=== PATIENT | male | born 1970 | race American Indian/Alaskan Native ===

== ENCOUNTER 2018-09-27 15:19 | Observation (INO) | payer OTHER ==
[2018-09-27] MEDS ORDERED: MORPHINE 4 MG/ML SYR ONE (16:07)
[2018-09-27] MEDS ORDERED: FAMOTIDINE 20 MG/2 ML VIAL IV ONE (16:07)
[2018-09-27] MEDS ORDERED: ONDANSETRON 4 MG/2 ML VIAL ONE (16:07)
[2018-09-27 16:12] LABS: Basophils % 0.2 % (0-1.3); Hematocrit 44.8 % (39.6-49.0); Lymphocytes % 13.1 % (15.3-44.8); MPV 10.7 fL (7.6-11.3); RBC Red Blood Cell Count 4.89 M/uL (4.33-5.43)
[2018-09-27] MEDS ORDERED: NA CHLORIDE 0.9% 1,000 ML ONE ×2 (16:27→19:49)
[2018-09-27 16:30] LABS: ALT/SGPT 27 U/L (12-78); AST/SGOT 11 U/L (15-37); Alkaline Phosphatase 68 U/L (45-117); BUN Blood Urea Nitrogen 10 mg/dL (7-18); Bicarbonate 27 mmol/L (21-32); Bilirubin Direct < 0.1 mg/dL (0-0.2); Bilirubin Total 0.4 mg/dL (0.2-1.0); Glucose Level 89 mg/dL (74-106); Lipase 161 U/L (73-393); Potassium 3.7 mmol/L (3.5-5.1); Sodium Level 142 mmol/L (136-145)
[2018-09-27 16:59] LABS: Urine Blood NEGATIVE (NEG); Urine Glucose NEGATIVE (NEG); Urine Protein NEGATIVE (NEG); Urine Specific Gravity 1.015 (1.005-1.030); Urine pH 7.5 (5.0-7.0)
[2018-09-27 17:14] LABS: Urine Amorphous Sediment 2+ /HPF (NONE SEEN); Urine Bacteria <20 /HPF (NONE SEEN); Urine Culture Reflex Order NOT NEEDED; Urine RBC <5 /HPF (NONE SEEN)
--- NOTE | 2018-09-27 18:58 | RAD REPORT ---
EXAM DESCRIPTION: CT - Abdomen Pelvis W Contrast - 09/27/2018 6:33 pm CLINICAL HISTORY: Abdominal pain, possible appendicitis COMPARISON: September, January 2015 TECHNIQUE: Biphasic, helical CT imaging of the abdomen and pelvis was performed following 100 ml non -ionic IV contrast. Oral contrast was given. All CT scans are performed using dose optimization technique as appropriate and may include automated exposure control or mA/KV adjustment according to patient size. FINDINGS: No suspicious findings in the lung bases. The liver, spleen, and pancreas show no suspicious findings. Gallbladder and biliary tree are also wi thout suspicious finding. Symmetric renal function is seen with no hydronephrosis or suspicious renal mass. No pyelonephritis o r acute parenchymal process. Urinary bladder is contracted. No gross abnormality suspected. Prostate gland and seminal vesicles are normal range. No adrenal abnormalities. No gastric dilatation or gastric wall thickening. No dilation of the large or small bowel. Terminal i leum is normal in appearance. There is a moderately large stool volume in the cecum. Oral contrast morris s reached the mid transverse colon level. Review oval prior 3 CT study shows the patient to have a baseline short length appendix with a relati vely prominent baseline diameter up to 8-9 mm. On the current examination. The tip of the cecum is th ickened. The short length appendix is 14 mm in diameter. There is no contrast or air within the lumen . No appendicolith. No measurable periappendiceal stranding or abnormal lymphadenopathy. No free air or free fluid. No pneumatosis or additional areas of inflammatory stranding. No mass o r bulky lymphadenopathy. Patient has bilateral fat filled inguinal hernias. No suspicious bony findings. IMPRESSION: Suspected early acute appendicitis. The patient's appendix is as a baseline short in length and prominent in diameter. On the current exa mination the appendix is even greater in diameter up to 14 mm with no air in the lumen. Tip of the ce cum is thickened. No other GI abnormality seen. Additional nonacute findings are detailed in the body of the report.
--- NOTE | 2018-09-27 19:23 | ER ---
Nurse's Notes [facility] Name: Suhas Christie Age: 48 yrs Sex: Male : 1970 Arrival Date: 09/27/2018 Time: 15:21 Bed 23 [facility] MD: Diagnosis: Acute appendicitis Presentation: 09/27 15:36 Presenting complaint: Patient states: General abdominal pain with one episode of aj vomiting and diarrhea. Patient took Imodium and Pepto today with no relief. Transition of care: patient was not received from another setting of care. Onset of symptoms was September 27, 2018. Risk Assessment: Do you want to hurt yourself or someone else? Patient reports no desire to harm self or others. Initial Sepsis Screen: Does the patient meet any 2 criteria? No. Patient's initial sepsis screen is negative. Does the patient have a suspected source of infection? No. Patient's initial sepsis screen is negative. Care prior to arrival: None. 15:36 Method Of Arrival: Ambulatory aj 15:36 Acuity: CHARLES 3 aj Triage Assessment: 15:37 General: Appears in no apparent distress. comfortable, Behavior is calm, cooperative, aj appropriate for age. Pain: Complains of pain in abdomen. Neuro: Level of Consciousness is awake, alert, obeys commands, Oriented to person, place, time, situation, Appropriate for age. Respiratory: Airway is patent Respiratory effort is even, unlabored, Respiratory pattern is regular, symmetrical. GI: Reports lower abdominal pain, upper abdominal pain, diarrhea, nausea, vomiting. Derm: Skin is intact, is healthy with good turgor, Skin is pink, warm \T\ dry. normal. Historical: - Allergies: 15:37 No Known Allergies; aj - Home Meds: 15:37 None [Active]; aj - PMHx: 15:37 Prostate Infection; aj - PSHx: 15:37 back; aj - Immunization history:: Adult Immunizations up to date. - Social history:: Smoking status: Patient/guardian denies using tobacco. - Ebola Screening: : Patient negative for fever greater than or equal to 101.5 degrees Fahrenheit, and additional compatible Ebola Virus Disease symptoms Patient denies exposure to infectious person Patient denies travel to an Ebola-affected area in the 21 days before illness onset No symptoms or risks identified at this time. Screenin:45 Abuse screen: Denies threats or abuse. Denies injuries from another. Nutritional rv screening: No deficits noted. Tuberculosis screening: No symptoms or risk factors identified. Fall Risk None identified. Assessment: 15:43 General: Appears in no apparent distress. uncomfortable, Behavior is calm, cooperative. rv Pain: Complains of pain in umbilical area Pain radiates to right upper quadrant, left upper quadrant, right lower quadrant and left lower quadrant Pain currently is 8 out of 10 on a pain scale. Quality of pain is described as sharp, Pain began gradually, Is continuous. Neuro: Level of Consciousness is awake, alert, obeys commands, Oriented to person, place, time, situation. Cardiovascular: Patient's skin is warm and dry. Respiratory: Airway is patent. GI: Abdomen is flat, non-distended, Bowel sounds present X 4 quads. Abd is soft and non tender X 4 quads. : No signs and/or symptoms were reported regarding the genitourinary system. EENT: No signs and/or symptoms were reported regarding the EENT system. Derm: Skin is intact. Musculoskeletal: No signs and/or symptoms reported regarding the musculoskeletal system. 16:15 Reassessment: Patient appears in no apparent distress at this time. Patient and/or rv family updated on plan of care and expected duration. Pain level reassessed. Patient is alert, oriented x 3, equal unlabored respirations, skin warm/dry/pink. patient already feeling well. informed CT scan oral contrast done at about 1605. patient updated of 2 hour wait for the CT scan to be done. Patient states feeling better. Patient states symptoms have improved. 18:51 Reassessment: Patient appears in no apparent distress at this time. Patient and/or rv family updated on plan of care and expected duration. Pain level reassessed. Patient is alert, oriented x 3, equal unlabored respirations, skin warm/dry/pink. patient came back from CT scan. expressed relief after the Morphine dose. explained of status and lab results, and the plan of care. awaiting CT scan result. Patient states feeling better. Vital Signs: 15:37 BP 140 / 87; Pulse 74; Resp 18; Temp 98.1; Pulse Ox 98% on R/A; Weight 68.04 kg; Height aj 5 ft. 7 in. (170.18 cm); 16:00 BP 132 / 94; Pulse 64; Resp 16; Pulse Ox 98% on R/A; rv 18:30 BP 109 / 79; Pulse 57; Resp 15; Pulse Ox 98% ; Pain 5/10; rv 20:07 BP 97 / 58; Pulse 61; Resp 16; Temp 98; Pulse Ox 99% on R/A; rv 15:37 Body Mass Index 23.49 (68.04 kg, 170.18 cm) aj ED Course: 15:21 Patient arrived in ED. as 15:32 Aleksandr Melgar PA is PHCP. cp 15:32 Aleksandr Durbin MD is Attending Physician. cp 15:34 David Duggan, KIANA is Primary Nurse. rv 15:36 Triage completed. aj 15:37 Arm band placed on left wrist. Patient placed in an exam room, on a stretcher, on pulse aj oximetry. 15:45 Patient has correct armband on for positive identification. Placed in gown. Bed in low rv position. Call light in reach. Side rails up X 1. Pulse ox on. NIBP on. 15:59 Missed attempt(s): 20 gauge in right forearm. lt1 15:59 Initial lab(s) drawn, by wy, sent to lab. Inserted saline lock: 20 gauge in right lt1 antecubital area, using aseptic technique. 18:35 CT Abd/Pelvis - PO and IV Contrast In Process Unspecified. EDMS 19:23 Judd Marie MD is Hospitalizing Provider. cp 19:53 XRAY Chest (1 view) In Process Unspecified. EDMS 20:08 No provider procedures requiring assistance completed. Patient transferred, IV remains rv in place. Administered Medications: 16:03 Drug: morphine 4 mg Route: IVP; Site: right antecubital; rv 16:03 Drug: Zofran 4 mg Route: IVP; Site: right antecubital; rv 16:03 Drug: Pepcid 20 mg Route: IVP; Site: right antecubital; rv 16:13 Drug: NS 0.9% 1000 ml Route: IV; Rate: 1 bolus; Site: right antecubital; rv 19:28 Follow up: IV Status: Completed infusion rv 19:40 Drug: Zosyn 3.375 grams Route: IVPB; Infused Over: 60 mins; Site: right antecubital; rv 20:07 Follow up: IV Status: Infusion continued upon transfer rv Outcome: 19:23 Decision to Hospitalize by Provider. cp 20:08 Admitted to OR accompanied by nurse, via stretcher, room OR, Report called to SANTOS BRUNO rv 20:08 Condition: stable 20:08 Instructed on the need for admit. 20:32 Patient left the ED. rv Signatures: Dispatcher [employer] Toyin Bhakta RN RN aj Martinez, Amelia as Page, Corey, PA PA David Gerardo RN RN rv Gisselle Escalona 1 Corrections: (The following items were deleted from the chart) 20:32 20:08 Admitted to OR accompanied by nurse, via stretcher, room OR, rv rv
--- NOTE | 2018-09-27 19:24 | EDPHYS ---
Physician Documentation [facility] Name: Suhas Christie Age: 48 yrs Sex: Male : 1970 Arrival Date: 09/27/2018 Time: 15:21 Bed 23 Private MD: ED Physician Aleksandr Durbin HPI: 09/27 15:48 This 48 yrs old Other Male presents to ER via Ambulatory with complaints of Abdominal cp Pain, Back Pain, Dizziness. 15:48 The patient presents with abdominal pain mid abdomen. Onset: The symptoms/episode cp began/occurred yesterday. Associated signs and symptoms: Pertinent negatives: blood in stools, chest pain, constipation, diarrhea, testicular pain, vomiting. The symptoms are described as sharp. Severity of pain: in the emergency department the pain is actually worse moderately. Historical: - Allergies: 15:37 No Known Allergies; aj - Home Meds: 15:37 None [Active]; aj - PMHx: 15:37 Prostate Infection; aj - PSHx: 15:37 back; aj - Immunization history:: Adult Immunizations up to date. - Social history:: Smoking status: Patient/guardian denies using tobacco. - Ebola Screening: : Patient negative for fever greater than or equal to 101.5 degrees Fahrenheit, and additional compatible Ebola Virus Disease symptoms Patient denies exposure to infectious person Patient denies travel to an Ebola-affected area in the 21 days before illness onset No symptoms or risks identified at this time. ROS: 15:55 Constitutional: Negative for body aches, chills, fever, poor PO intake. cp 15:55 Eyes: Negative for injury, pain, redness, and discharge. cp 15:55 ENT: Negative for drainage from ear(s), ear pain, sore throat, difficulty swallowing, difficulty handling secretions. 15:55 Cardiovascular: Negative for chest pain, palpitations. 15:55 Respiratory: Negative for cough, shortness of breath, wheezing. 15:55 Abdomen/GI: Positive for abdominal pain, nausea, diarrhea, Negative for constipation, black/tarry stool, rectal bleeding, active vomiting. 15:55 : Negative for urinary symptoms, flank pain, testicular pain 15:55 All other systems are negative. Exam: 15:59 Head/Face: Normocephalic, atraumatic. cp 15:59 Constitutional: The patient appears in no acute distress, alert, awake, non-toxic, well developed, well nourished, uncomfortable. 15:59 Eyes: Periorbital structures: appear normal, Conjunctiva: normal, no exudate, no injection, Sclera: no appreciated abnormality, Lids and lashes: appear normal, bilaterally. 15:59 ENT: External ear(s): are unremarkable, Nose: is normal, Mouth: Lips: dry, Oral mucosa: moist, Posterior pharynx: is normal, airway is patent, no erythema, no exudate. 15:59 Chest/axilla: Inspection: normal, Palpation: is normal, no crepitus, no tenderness. 15:59 Cardiovascular: Rate: normal, Rhythm: regular, Edema: is not appreciated, JVD: is not appreciated. 15:59 Respiratory: the patient does not display signs of respiratory distress, Respirations: normal, no use of accessory muscles, no retractions, no splinting, no tachypnea, labored breathing, is not present, Breath sounds: are clear throughout, no decreased breath sounds, no stridor, no wheezing. 15:59 Abdomen/GI: Inspection: abdomen appears normal, Bowel sounds: active, all quadrants, Palpation: soft, in all quadrants, moderate abdominal tenderness, in the umbilical area and right lower quadrant, rebound tenderness, is not appreciated, voluntary guarding, is elicited in the umbilical area and right lower quadrant, involuntary guarding, is not appreciated. 15:59 Back: pain, is absent, ROM is normal. 15:59 Skin: no rash present. 20:15 ECG was reviewed by the Attending Physician. cp Vital Signs: 15:37 BP 140 / 87; Pulse 74; Resp 18; Temp 98.1; Pulse Ox 98% on R/A; Weight 68.04 kg; Height aj 5 ft. 7 in. (170.18 cm); 16:00 BP 132 / 94; Pulse 64; Resp 16; Pulse Ox 98% on R/A; rv 18:30 BP 109 / 79; Pulse 57; Resp 15; Pulse Ox 98% ; Pain 5/10; rv 20:07 BP 97 / 58; Pulse 61; Resp 16; Temp 98; Pulse Ox 99% on R/A; rv 15:37 Body Mass Index 23.49 (68.04 kg, 170.18 cm) aj MDM: 15:33 Patient medically screened. [facility] 19:20 Data reviewed: vital signs, nurses notes, lab test result(s), radiologic studies, CT cp scan. 19:20 Physician consultation: Judd Marie MD was called at 19:20, was contacted at 19:20, regarding admission, to the medical/surgical unit. patient's condition. 09/27 15:44 Order name: Basic Metabolic Panel; Complete Time: 19:18 cp 09/27 15:44 Order name: CBC with Diff; Complete Time: 16:26 cp 09/27 16:26 Interpretation: Normal except: NOHEMI% 77.8; LYM% 13.1. cp 09/27 15:44 Order name: Creatinine for Radiology; Complete Time: 19:18 cp 09/27 15:44 Order name: Hepatic Function; Complete Time: 19:18 cp 09/27 15:44 Order name: Lipase; Complete Time: 19:18 cp 09/27 15:44 Order name: Urine Microscopic Only; Complete Time: 19:18 cp 09/27 16:08 Order name: Urine Dipstick--Ancillary (enter results); Complete Time: 19:18 09/27 19:21 Order name: PT-INR 09/27 19:21 Order name: Ptt, Activated 09/27 20:09 Order name: Basic Metabolic Panel EDTN 09/27 20:09 Order name: Basic Metabolic Panel EDTN 09/27 20:09 Order name: CBC with Automated Diff EDTN 09/27 20:09 Order name: CBC with Automated Diff [facility] 09/27 20:09 Order name: Lipase EDTN 09/27 15:44 Order name: IV Saline Lock; Complete Time: 16:00 09/27 15:44 Order name: Labs collected and sent; Complete Time: 16:00 09/27 15:44 Order name: Urine Dipstick-Ancillary (obtain specimen); Complete Time: 16:02 cp 09/27 15:44 Order name: CT Abd/Pelvis - PO and IV Contrast; Complete Time: 19:18 cp 09/27 19:19 Interpretation: Report reviewed. 09/27 19:21 Order name: NPO; Complete Time: 19:27 cp 09/27 19:21 Order name: EKG; Complete Time: 19:23 cp 09/27 19:21 Order name: XRAY Chest (1 view) 09/27 20:09 Order name: NPO EDTN 09/27 20:09 Order name: Lipase EDTN 09/27 20:09 Order name: Liver (Hepatic) Function EDTN 09/27 20:09 Order name: Liver (Hepatic) Function EDTN 09/27 19:21 Order name: EKG - Nurse/Tech; Complete Time: 20:07 cp EC:15 Rate is 58 beats/min. Rhythm is regular. OH interval is normal. QRS interval is normal. cp QT interval is normal. Interpreted by me. Reviewed by me. Administered Medications: 16:03 Drug: morphine 4 mg Route: IVP; Site: right antecubital; rv 16:03 Drug: Zofran 4 mg Route: IVP; Site: right antecubital; rv 16:03 Drug: Pepcid 20 mg Route: IVP; Site: right antecubital; rv 16:13 Drug: NS 0.9% 1000 ml Route: IV; Rate: 1 bolus; Site: right antecubital; rv 19:28 Follow up: IV Status: Completed infusion rv 19:40 Drug: Zosyn 3.375 grams Route: IVPB; Infused Over: 60 mins; Site: right antecubital; rv 20:07 Follow up: IV Status: Infusion continued upon transfer rv Disposition: 09/28 06:21 Co-signature as Attending Physician, Aleksandr Durbin MD I agree with the assessment and [facility] plan of care. Disposition: 09/27/18 19:23 Hospitalization ordered by Judd Marie for Observation. Preliminary diagnosis is Acute appendicitis. - Bed requested for Telemetry/MedSurg (observation). - Status is Observation. rv - Condition is Stable. - Problem is new. - Symptoms have improved. UTI on Admission? No Signatures: Dispatcher [employer] [facility] Ani Mccurdy RN RN mw Myers, Amanda, RN RN aj Anderson, Corey, MD MD cha Page, Corey, PA PA cp Vicente, Ronaldo, RN RN rv Corrections: (The following items were deleted from the chart) 09/27 19:42 19:23 Hospitalization Ordered by Judd Marie MD for Observation. Preliminary mw diagnosis is Acute appendicitis. Bed requested for Operating Room. Status is Observation. Condition is Stable. Problem is new. Symptoms have improved. UTI on Admission? No. cp 20:32 19:42 09/27/2018 19:23 Hospitalization Ordered by Judd Marie MD for Observation. rv Preliminary diagnosis is Acute appendicitis. Bed requested for Telemetry/MedSurg (observation). Status is Observation. Condition is Stable. Problem is new. Symptoms have improved. UTI on Admission? No. mw
[2018-09-27] MEDS ORDERED: PIPER/TAZO/NS 3.375gm 3.375 GM/100 ML BAG ONE (19:49)
[2018-09-27 20:02] LABS: Protime INR 1.07
[2018-09-27] MEDS ORDERED: ACETAMINOPHEN 500 MG TAB PO PRN (20:02)
[2018-09-27] MEDS ORDERED: ONDANSETRON 4 MG/2 ML VIAL IV PRN (20:02)
[2018-09-27] MEDS ORDERED: MORPHINE 4 MG/ML SYR IV PRN (20:02)
[2018-09-27] MEDS ORDERED: FENTANYL CITR 100 MCG/2 ML ONE (20:37)
[2018-09-27] MEDS ORDERED: GLYCOPYRROLATE 0.2 MG/ML SYR ONE (20:37)
[2018-09-27] MEDS ORDERED: PROPOFOL 200 MG/20 ML VIAL IV ONE (20:37)
[2018-09-27] MEDS ORDERED: MIDAZOLAM HCL 2 MG/2 ML INJ ONE (20:37)
[2018-09-27] MEDS ORDERED: NEOSTIGMINE 1 MG/ML -10 ML VIAL ONE (20:38)
[2018-09-27] MEDS ORDERED: KETOROLAC 30 MG/ML INJ ONE (20:39)
[2018-09-27] MEDS ORDERED: MORPHINE 10 MG/ML VIAL ONE (20:39)
[2018-09-27] MEDS ORDERED: LIDOCAINE 1% MPF 5 ML VIAL ONE (20:39)
[2018-09-27] MEDS ORDERED: ROCURONIUM 50 MG/5 ML VIAL IV ONE (20:39)
--- NOTE | 2018-09-27 20:46 | RAD REPORT ---
EXAM DESCRIPTION: RAD - Chest Single View - 09/27/2018 7:52 pm CLINICAL HISTORY: Abdominal pain COMPARISON: January 2015 TECHNIQUE: AP portable chest image was obtained 1950 hours . FINDINGS: Lungs are clear. Heart and vasculature are normal. No measurable pleural effusion and no p neumothorax. No acute bony abnormality seen. No acute aortic findings suspected. IMPRESSION: No acute cardiopulmonary process. No significant interval change.
--- NOTE | 2018-09-27 22:07 | P.BOP ---
Preoperative diagnosis: Acute appendicitis Postoperative diagnosis: same Primary procedure: Laparoscopic appendectomy Estimated blood loss: <10cc Specimen: omar Findings: as above Anesthesia: General Complications: None Transferred to: Recovery Room Condition: Good
[2018-09-27] MEDS: HYDROMORPHONE HCL 1 MG/ML INJ ONE ×2 (22:09→22:16)
[2018-09-27] MEDS: HYDROCODONE/APAP 5/325 MG TAB PO PRN (23:01)
[2018-09-27 23:09] VITALS: BMI 23.5
[2018-09-27] MEDS: PIPER/TAZO/NS 3.375gm 3.375 GM/100 ML BAG IVPB SCH (23:48)
[2018-09-27] MEDS ORDERED: PIPER/TAZO/NS 3.375gm 6.750 GM/200 ML BAG ONE (23:48)
--- NOTE | 2018-09-27 23:48 | OP ---
Date of Procedure: 09/27/2018 Surgeon: Judd Mraie MD Preoperative Diagnosis: Acute appendicitis. Postoperative Diagnosis: Acute appendicitis. Procedure: Laparoscopic appendectomy. Anesthesia: General plus local. Indications: This is a case of a 48-year-old patient who comes to us with acute appendicitis. The b enefits, alternatives, and risks of laparoscopic, possible open appendectomy were fully explained to the patient, which included but are not limited to infection, bleeding, damage to adjacent structures , anesthesia complication, MS, even . He also understands this may not relieve the symptoms; he might need more than one surgical intervention. He understood, signed the consent. Description Of Procedure: The patient was brought to the operating room, placed in supine position. Anesthesia was done without complication. Abdominal area was prepped and draped in a sterile fashio n. A time-out was called. A midline incision was made in the infraumbilical region. Incision was c arried down to fascia, which was opened under direct vision. Peritoneum was encountered, opened unde r direct vision. Vicryl #1 was placed inside the fascia. Denisa trocar was carefully introduced. N o bleeding was obtained. I placed 2 more trocars, 5 mm each one of them, one in the suprapubic area, another one in the left lower quadrant using same technique, which was consisted of local anesthetic , sharp incision of the skin, and introduction of the trocars under direct vision. This allowed me t o visualize the area of the appendix with an inflamed appendix seen. So we created a window in the b ase of the appendix that seems to be spared from the inflammation. Transected that with an Endo HUY 45 mm 3.5, and the mesoappendix with an Endo HUY 45 mm 2.5. Further hemostasis was obtained with the help of hemoclips. Appendix was removed from abdominal cavity using an EndoCatch through the umbili panda incision. The area was inspected once again after irrigation and suction; we did not see any deborah e leak, no bleeding. At that moment, I proceeded to remove the trocars under direct vision. Deflate d pneumoperitoneum. Closed the fascia with #1 Vicryl. Irrigated subcutaneous tissue, closed that wi th 3-0 chromic and the skin with lucy. Sponge count and instrument counts were correct. The jose alfredo ent tolerated the procedure well. The patient was sent to Recovery in stable condition. /JUAN Voice ID: [id number] Report ID: [id number]
[2018-09-28] MEDS: NA CHLORIDE 0.9% 1,000 ML IV SCH ×2 (00:01→11:13)
--- NOTE | 2018-09-28 00:04 | HP ---
Date of Admission: 09/27/2018 Diagnosis: Acute appendicitis and peritonitis. History Of Present Illness: This is the case of a 48-year-old patient, who comes with abdominal pain , onset this morning, associated with nausea and vomiting. The only thing patient remembers is eatin g just a regular food with some spicy food, on it. The patient stated the pain was getting worse to the point that he has to come to the ER. In ER, the pain got worse, also started in the periumbilica l region, moved to the right lower quadrant. He denies any dysuria, hematuria, hematochezia, or orin na. He denies any recent traveling out of the country. Denies any family member sick at home. Allergies: NONE. Medical Problems: None other than some area of prostatitis. Past Surgical History: Back surgery. Social History: He does not smoke. He does not drink alcohol. Review of Systems: Ten points otherwise unremarkable. Physical Examination: General: Patient is awake and alert. HEENT: Pupils are equal and reactive, anicteric. Neck: Supple. Chest: Clear. Heart: S1, S2. Abdomen: Soft and depressible. There is right lower quadrant tenderness with guarding and rebound. Rovsing sign positive. Psoas sign positive. Extremities: Good capillary refill. Rectal: Deferred. Neurologic: Cranial nerves 2 through 12 grossly within normal limits. Laboratory Data: WBC count is 7.4, hemoglobin of 14.9 with an INR 1.07. Chloride is 108. AST 11. Imaging Studies: CAT scan of the abdomen and pelvis interpreted by as early acute omar endicitis. Patient also informed of the bilateral fat inguinal hernias. Assessment: This is a 48-year-old patient with acute appendicitis. No previous colonoscopies. The patient was explained emergent laparoscopic, possible open appendectomy with benefits, alternativ es, and risks including, but not limited to infection, bleeding, damage to adjacent structures, anest hesia complication, negative appendix, negative exploration, WA, and even . He also understands this may not relieve any symptoms, he might need more than one surgical intervention. He understand s to follow in my office since we have to make sure we have a followup on the pathology of that, and also discuss with his primary doctor the chance of colonoscopy in the near future. They understood a nd signed a consent and the OR was emergently called. YUE/JUAN Voice ID: [id number]
[2018-09-28] MEDS: HYDROCODONE/APAP 5/325 MG TAB PO PRN ×2 (03:51→11:15)
[2018-09-28] MEDS: PIPER/TAZO/NS 3.375gm 3.375 GM/100 ML BAG IVPB SCH (05:26)
[2018-09-28 07:09] LABS: Absolute Lymphocytes (CBC) 0.7 K/uL (0.7-4.9); Basophils % 0.2 % (0-1.3); Hematocrit 36.4 % (39.6-49.0); Lymphocytes % 9.5 % (15.3-44.8); MPV 10.4 fL (7.6-11.3); RBC Red Blood Cell Count 3.97 M/uL (4.33-5.43)
[2018-09-28 07:19] LABS: Albumin 3.1 g/dL (3.4-5.0); Bilirubin Direct 0.2 mg/dL (0-0.2); Bilirubin Total 0.7 mg/dL (0.2-1.0); Potassium 3.7 mmol/L (3.5-5.1); Protein, Total 6.2 g/dL (6.4-8.2)
--- NOTE | 2018-09-28 10:36 | EKG ---
Test Date: 2018-09-27 Test Time: 20:06:46 Structural Technician: MEASUREMENT RESULTS: Intervals: Rate: 58 FL: 136 QRSD: 72 QT: 418 QTc: 410 Alviso: P: 41 FL: 136 QRS: 55 T: 51 INTERPRETIVE STATEMENTS: Sinus bradycardia Otherwise normal ECG Compared to ECG 01/10/2015 14:00:15 Sinus rhythm no longer present Electronically Signed On 09-28-18 10:35:07 CDT by Bradley Jeffery
[2018-09-28 12:04] VITALS: O2SAT 96
[2018-09-28 12:56] VITALS: BP 106/63; TEMP 97.3
[2018-09-28] MEDS ORDERED: PIPER/TAZO/NS 3.375gm 3.375 GM/100 ML BAG IVPB SCH (17:00)
== END 2018-09-28 14:49 | disposition home or self-care (01) ==
LOC: ER 15:19 → ERHOLD 20:18 → 2ND 22:17
PROVIDERS: ADMIT Surgery; ATTEND Surgery
PROC: 0DTJ4ZZ Resection of Appendix, Percutaneous Endoscopic Approach (ICD-10-PCS; principal; 2018-09-27 20:00)
DX: K35.80 Unspecified acute appendicitis (principal); R00.1 Bradycardia, unspecified
CPT/HCPCS: 36415; 71045; 74177; 80048; 80076; 81003; 81015; 83690; 85025; 85610; 85730; 88304; 93005; 96361; 96365; 96375; 99285; G0378; J1170; J2250; J2405; J2543; J2704; J2710; J3010; J7030; Q9967

== ENCOUNTER 2019-01-04 09:44 | Day surgery (SDC) | payer OTHER ==
[2019-01-03 15:54] LABS: Absolute Lymphocytes (CBC) 0.9 K/uL (0.7-4.9); Basophils % 0.5 % (0-1.3); Hematocrit 43.2 % (39.6-49.0); Lymphocytes % 18.3 % (15.3-44.8); MPV 10.3 fL (7.6-11.3); RBC Red Blood Cell Count 4.75 M/uL (4.33-5.43)
[2019-01-03 16:08] LABS: BUN Blood Urea Nitrogen 13 mg/dL (7-18); Bicarbonate 32 mmol/L (21-32); Glucose Level 89 mg/dL (74-106); Potassium 4.1 mmol/L (3.5-5.1); Sodium Level 140 mmol/L (136-145)
[~2019-01-04 09:44] MED LIST: FENTANYL CITR 250 MCG/5 ML ONE; GLYCOPYRROLATE 0.2 MG/ML SYR ONE; LIDOCAINE 2% MPF 5 ML VIAL ONE; MIDAZOLAM HCL 2 MG/2 ML INJ ONE; PROPOFOL 200 MG/20 ML VIAL IV ONE; ROCURONIUM 50 MG/5 ML VIAL IV ONE; dexAMETHasone 10 MG/ML VIAL ONE
[2019-01-04] MEDS: Ringers Lactate 1,000 ML IV ONE (10:06)
[2019-01-04] MEDS ORDERED: CEFAZOLIN/SWI 1gm 1 GM/10 ML SYR ONE (10:31)
[2019-01-04] MEDS ORDERED: KETOROLAC 30 MG/ML INJ ONE (11:26)
[2019-01-04] MEDS ORDERED: GLYCOPYRROLATE 0.2 MG/ML SYR ONE ×2 (11:29→11:30)
[2019-01-04] MEDS ORDERED: NEOSTIGMINE 1 MG/ML -10 ML VIAL ONE (11:30)
--- NOTE | 2019-01-04 11:30 | P.BOP ---
Preoperative diagnosis: bilateral inguinal hernias Postoperative diagnosis: same Primary procedure: 1. Laparoscopic repair of right inguinal hernia with mesh Secondary procedure: 2. Laparoscopic repair of left inguinal hernia with mesh Beamer Helper: Aster Quintanilla) Estimated blood loss: <10cc Specimen: none Findings: as above Anesthesia: General Complications: None Transferred to: Recovery Room Condition: Good
[2019-01-04] MEDS: HYDROMORPHONE HCL 1 MG/ML INJ ONE ×4 (12:07→12:25)
[2019-01-04] MEDS ORDERED: ONDANSETRON 4 MG/2 ML VIAL ONE (12:12)
[2019-01-04] MEDS ORDERED: Ringers Lactate 1,000 ML IV ONE (12:30)
[2019-01-04] MEDS ORDERED: CODEINE 30MG/APAP 300MG TAB ONE (13:35)
[2019-01-04] MEDS ORDERED: CODEINE 30MG/APAP 300MG TAB PO ONE (13:45)
[2019-01-04 14:26] VITALS: TEMP 98; O2SAT 96
[2019-01-04 15:00] VITALS: BP 108/70
--- NOTE | 2019-01-05 00:25 | OP ---
Date of Procedure: 01/04/2019 Surgeon: Judd Marie MD Art Gallery Director: NIKOLAY Heath. Postoperative Diagnosis: Bilateral inguinal hernias. Postoperative Diagnosis: Bilateral inguinal hernias. Procedure Performed: 1.Laparoscopic repair of right inguinal hernia with mesh. 2.Laparoscopic repair of left inguinal hernia with mesh. Estimated Blood Loss: Less than 10 mL. Anesthesia: General plus local. Indications: This is the case of a 48-year-old patient, comes to us with a bilateral inguinal hernia s with tenderness. Benefits, alternatives, and risks of repair were fully explained, which include, but are not limited to infection, bleeding, damage to adjacent structures, anesthesia complications, recurrence, chronic pain, chronic numbness, MA, even . He also understands this may not relieve any symptoms. He might need more than one surgical intervention. He also understands the use of me sh in that region. Pros and cons of mesh used was discussed with the patient. He did allow me to us e mesh. Description Of Procedure: The patient was brought to the operating room, placed in supine position. Anesthesia was done without complication. Abdominal area was prepped and draped in a sterile fashio n. Marcaine 0.5% was injected for local anesthetic, followed by sharp incision of the skin in the in fraumbilical region. Incision was carried down to fascia, which was opened under direct vision. The anterior rectus sheath was opened, the posterior rectus sheath was encountered after the muscle was retracted laterally. The patient was placed in Trendelenburg position. The extrapleural space was d eveloped with the use of blunt dissection and also balloon tipped pacemaker trocar placed in the area toward the symphysis pubis and insufflated with angled laparoscope visualization. This help us to c reate the extraperitoneal space. The balloon was removed. The area was insufflated and a 5 mm troca r was placed in the area of the distal pubis symphysis and another one shelter between the first and the second one. The preperitoneal space was further developed by exposing the inferior epigastric ve ssels and keeping them anterior. Mitesh ligament was dissected laterally to the junction with the il iac veins. The dissection was continued inferiorly to the iliopubic tract, avoiding damage to the fe moral branch of the genitofemoral nerve and lateral femoral cutaneous nerve. The cord structures wer e skeletonized, the hernia sac was identified, carefully retracted, and reduced into the abdominal ca vity. This was done on the right side. The same procedure was done on the left side under direct vi sualization. Once again, the hernia sac was retracted in the peritoneal space. After we had the rig ht and left areas visualized and the hernia sac removed from the cord structures, we proceeded to a 3 D mesh. We started with the left side first. We put a medium mesh. Secured the mesh lateral and bean perior to the iliopubic tract and inferior and medial to the Mitesh ligament. The same was done with the right side. After ensuring proper hemostasis and while holding the mesh in place after securing that with SorbaFix. We held still the lower part, secured that with the instruments to avoid the he rnia to sneak behind the mesh while we removed the insufflation from the area. The patient tolerated the procedure well. Trocars were removed. Anterior rectus sheath was closed with #1 Vicryl, and th e skin was closed with 3-0 chromic and Steri-Strips on top. Sponge count and instrument counts were correct. At the end of the case, testicles were within the scrotum. Diagnosis: Bilateral inguinal hernias. Procedure: Laparoscopic repair of right and left inguinal hernia with mesh. Disposition: Home. Activity: As tolerated. No heavy lifting. Followup: Follow up in my office in a week. Call for appointment at [phone]. Keep area dry for 48 hours, then may shower. Cold compress to the bilateral inguinal region for 24 hours. Medications: See orders. YUE/JUAN Voice ID: [id number] Report ID: [id number]
== END 2019-01-04 14:45 | disposition home or self-care (01) ==
LOC: OR 09:44
PROVIDERS: ATTEND Surgery
PROC: 0YUA4JZ Supplement Bilateral Inguinal Region with Synthetic Substitute, Percutaneous Endoscopic Approach (ICD-10-PCS; principal; 2019-01-04 11:00)
DX: K40.00 Bilateral inguinal hernia, with obstruction, without gangrene, not specified as recurrent (principal); K21.9 Gastro-esophageal reflux disease without esophagitis
CPT/HCPCS: 85025; 80048; 36415; 49650; J2704; J2710; J2250; J3010; J1100; J1170 ×2; J0690; J7120 ×2; J2405

== ENCOUNTER 2022-09-11 20:22 | Emergency (ER) | payer OTHER ==
--- OUTSIDE RECORDS SUMMARY | 2022-09-11 20:35 | XMS REPORT | Continuity of Care Document ---
:1970 Author Organization [facility] t Address [address] [place] [address] Care Team Providers Name Role Phone Asked, No Pcp Primary Care Physician Unavailable Estuardo DIOR, Oliver Attending Clinician Eliot DIOR, Francisco Carrington Attending Clinician [phone] Payers Payer Name Policy Type Policy Number Effective Date Expiration Date S ource Problems This patient has no known problems. Allergies, Adverse Reactions, Alerts This patient has no known allergies or adverse reactions. Family History Family Member Diagnosis Comments Start Date Stop Date Source [facility] mother Bipolar disorder [facility] Natural mother Depression [facility] Social History Social Habit Start Date Stop Date Quantity Comments Source Gender identity [facility] Sexual orientation Method ist [facility] Alcohol intake 2022-08-22 2022-08-22 Lifetime Denominational 00:00:00 00:00:00 non-drinker Hospital (finding) History of Social 2022-08-22 2022-08-[address] function 00:00:00 00:00:00 Hospital Tobacco use and 2020-07-11 2020-07-11 Smokeless Denominational exposure 00:00:00 00:00:00 tobacco non-user Hospital Sex Assigned At [birth year] [facility] 00:[facility]:00 Hospital Smoking Status Start Date Stop Date Source Never smoked tobacco [facility] Medications Ordered Filled Start Stop Current Ordering Indication Dosage Frequency Signature Comments Components Source Medication Medication Date Date Medication? Clinician (SIG) Name Name acetaminoph Yes [id number] 1{tbl} Q6H Take 1 M ethodi en-codeine 6-[address] (TYLENOL 00:00: mouth Hospita WITH 00 every 6 l CODEINE #3) (six) 300-30 mg hours as per tablet needed for moderate pain .acute pain. ondansetron 2022- Yes 4mg Q8H Take 1 Met hodi ODT 6-18 07-19 tablet (4 st (ZOFRAN-ODT 00:00: 04:59 mg total) Hospita ) 4 MG 00 :00 by mouth l disintegrat every 8 ing tablet (eight) hours as needed for nausea or vomiting for up to 30 days. amoxicillin 2022- No 1{tbl} Q8H Take 1 M ethodi -pot 6-18 06-[address] clavulanate 00:00: 04:59 mouth Hosp pricilla (AUGMENTIN) 00 :00 every 8 l 875-125 mg (eight) per tablet hours for 10 days. meloxicam Yes 15mg Q24H Take 1 Method i (MOBIC) 15 6-17 tablet (15 st mg tablet 23:13: mg total) Hos megan 02 by mouth l daily as needed. traMADoL Yes [id number] 50mg Q6H Take 1 Method i (ULTRAM) 50 6-17 tablet (50 st mg tablet 23:13: mg total) Hos megan 02 by mouth l every 6 (six) hours as needed for moderate pain .acute pain. traZODone Yes [id number] 100mg QD Take 1 Me thodi (DESYREL) 8-[address] 100 MG 00:00: (100 mg Hospita tablet 00 total) by l mouth nightly. ARIPiprazol Yes [id number] 1mg QD Take 0.5 Methodi e (ABILIFY) 8-11 tablets (1 st 2 MG tablet 00:00: mg total) H ospita 00 by mouth l daily. pregabalin 2022- No [id number] 150mg QD Take 1 [facility] (Lyrica) 8-11 08-[address] 150 MG 00:00: 04:59 (150 mg Hospita capsule 00 :00 total) by l mouth nightly. buPROPion 2022- No [id number] 150mg QD Take 1 Methodi XL 8-01 13-[address] (Wellbutrin 00:00: 04:59 (150 mg Ho spita XL) 150 MG 00 :00 total) by l 24 hr mouth tablet daily. buPROPion 2021- No [id number] 150mg QD Take 1 [facility] XL 3-12 13-[address] (Wellbutrin 00:00: 00:00 (150 mg Ho spita XL) 150 MG 00 :00 total) by l 24 hr mouth in tablet the morning. pregabalin 2021- No [id number] 75mg Q.5D Take 1 [facility] (Lyrica) 75 3- capsule st MG capsule 00:00: 00:00 (75 mg Hosp pricilla 00 :00 total) by l mouth in the morning and 1 capsule (75 mg total) before bedtime. traZODone 2020-03- No [id number] 100mg QD Take 1 M ethodi (DESYREL) 03-[address] 100 MG 00:00: 00:00 (100 mg Hospita tablet 00 :00 total) by l mouth nightly. ARIPiprazol 2020-03- No [id number] 1mg QD Take 0.5 Methodi e (ABILIFY) 03-22 tablets (1 s t 2 MG tablet 00:00: 00:00 mg total) Hospita 00 :00 by mouth l daily. Immunizations Ordered Immunization Filled Immunization Date Status Commen ts Source Name Name Node1 COVID-19 MRNA 2021-03-07 Completed [facility]ist VACCINATION 00:00:00 [facility] PFIZER COVID-19 MRNA 2020-07-15 Completed Meth odist VACCINATION 00:00:00 [facility] PFIZER COVID-19 MRNA 2020-06-22 Completed [facility] VACCINATION 00:00:00 Hospital Vital Signs Vital Name Observation Time Observation Value Comments Source Systolic blood 2022-08-23 06:15:00 134 mm[Hg] [facility] pressure Diastolic blood 2022-08-23 06:15:00 61 mm[Hg] [facility] pressure Heart rate 2022-08-23 06:15:00 82 /min [facility] Oxygen saturation in 2022-08-23 06:15:00 95 /min [facility] Arterial blood by Pulse oximetry Respiratory rate 2022-08-23 04:30:00 16 /min [facility] Body temperature 2022-08-23 02:46:22 36.44 Sanam [facility] Body height 2022-08-23 02:45:00 170.2 cm [facility] Body weight 2022-08-23 02:45:00 74.844 kg [facility] BMI 2022-08-23 02:45:00 25.84 kg/m2 [facility] Procedures Procedure Date / Time Performing Clinician Source Performed CT ABDOMEN PELVIS W 2022-08-23 03:56:00 [facility] CONTRAST URINE CULTURE 2022-08-23 02:54:00 [facility] CBC WITH PLATELET AND 2022-08-23 02:54:00 [facility] DIFFERENTIAL COMPREHENSIVE METABOLIC 2022-08-23 02:54:00 [facility] PANEL LIPASE LEVEL 2022-08-23 02:54:00 [facility] URINALYSIS SCREEN AND 2022-08-23 02:54:00 [facility] MICROSCOPY, WITH REFLEX TO CULTURE ESTIMATED GFR 2022-08-23 02:54:00 [facility] Plan of Care Planned Activity Planned Date Details Comments Source Future Scheduled 2022-08-31 Screening for [facility] Test 13:55:34 malignant neoplasm of colon (procedure) [code = 448443471] Future Scheduled 2022-08-31 Screening for [facility] Test 13:55:34 malignant neoplasm of colon (procedure) [code = 196171643] Future Scheduled 2022-08-31 Screening for [facility] Test 13:55:34 malignant neoplasm of colon (procedure) [code = 322581636] Future Scheduled 2022-08-31 Hepatitis C [facility] ospital Test 13:55:34 screening (procedure) [code = 672127042] Future Scheduled 2022-08-31 Screening for [facility] Test 13:55:34 malignant neoplasm of colon (procedure) [code = 037003011] Future Scheduled 2022-08-31 Screening [facility] Test 13:55:34 malignant neoplasm of colon (procedure) [code = 592121660] Future Scheduled 2022-08-31 SHINGLES VACCINES [facility] Test 13:55:34 (1 of 2) [code = SHINGLES VACCINES (1 of 2)] Future Scheduled 2022-08-31 COVID-19 VACCINE (4 [facility] Test 13:55:34 - Pfizer series) [code = COVID-19 VACCINE (4 - Pfizer series)] Future Scheduled 2022-08-31 INFLUENZA VACCINE [facility] Test 13:55:34 [code = INFLUENZA VACCINE] Encounters Start End Encounter Admission Attending Care Care Encounter Source Date/Time Date/Time Type Type Clinicians Facility Department ID 2022-08-22 2022-08-23 Emergency Oliver Marte [id number] [facility] 21:47:00 01:21:[id number] 3.430.2.7 Hospit a .3.830627 l .8 2022-08-22 2022-08-[address] [facility] [id number] [place] 00:00:00 00:00:[address] 2021-10-16 2021-10-16 Telephone Brittany 2.840.1 [id number] [facility] 10:00:00 10:34:45 Consult [facility]io [address]408.1.[address] [place] 3.430.2.7 Hospit a .3.296158 l .8 2021-10-16 2021-10-16 Outpatient [facility] [id number] [place] 00:00:00 00:00:[address] 2021-10-16 2021-10-16 Travel 1.2.840.1 [id number] Method[facility] 00:00:00 00:00:[address] 3.430.2.7 0.2.7.3.698 Ho spita .3.597429 084.8 l .8 2021-05-15 2021-05-15 Outpatient [facility] [id number] [place] 00:00:00 00:00:00 M[address] 2021-02-19 2021-02-19 Outpatient [facility] [id number] [place] 00:00:00 00:00:00 MOHAM[address] 2021-02-10 2021-02-10 Outpatient [facility] [id number] [place] 00:00:00 00:00:00 [address] 2021-01-20 2021-01-20 Outpatient [facility] [id number] [place] 00:00:00 00:00:00 MOHAMMAD [address] 2020-10-16 2020-10-16 Outpatient [facility] [id number] [place] 00:00:00 00:00:00 M[address] 2020-07-11 2020-07-11 Outpatient [facility] [id number] 6519 [place] 00:00:00 00:00:00 MOHAMMAD [address] 2020-07-11 2020-07-11 Outpatient [facility] [id number] [place] 00:00:00 00:00:00 MOHAMMAD [address] 2020-07-11 2020-07-11 Outpatient [facility] [id number] 018 [place] 00:00:00 00:00:[address] Results Test Description Test Time Test Comments Results Result Comments Source Urine culture 2022-08-23 03:10:00 Test Item Value Reference Range Interpretation Comme nts Urine culture (test code = [id number]) SEE COMMENT Bacteriuria screen negative. [facility]
[2022-09-11 22:17] LABS: Absolute Lymphocytes (CBC) 1.2 K/uL (0.7-4.9); Hematocrit 42.6 % (39.6-49.0); Lymphocytes % 32.6 % (15.3-44.8); MCV 89.5 fL (80-100); MPV 9.1 fL (7.6-11.3); RBC Red Blood Cell Count 4.76 M/uL (4.33-5.43)
[2022-09-11] MEDS ORDERED: MORPHINE 4 MG/ML SYR ONE (22:17)
[2022-09-11] MEDS ORDERED: PIPERACIL/TAZO 3.375 GM VIAL IV ONE (22:17)
[2022-09-11] MEDS ORDERED: NA CHLORIDE 0.9% 2,000 ML ONE (22:17)
[2022-09-11] MEDS ORDERED: NA CHLORIDE 0.9% 100 ML ONE (22:17)
[2022-09-11 22:26] LABS: Specific Gravity 1.023 (1.005-1.030); Urine Bacteria None Seen /HPF (<20); Urine Bilirubin NEGATIVE (Negative); Urine Blood Negative (Negative); Urine Clarity Clear (Clear); Urine Color Yellow (Yellow); Urine Glucose NEGATIVE (Negative); Urine Mucus Slight /HPF (None Seen); Urine Protein TRACE (Negative); Urine RBC <5 /HPF (None Seen); Urine Urobilinogen Normal (Normal); Urine pH 7.5 (5.0-7.0)
[2022-09-11 22:26] LABS: Albumin 3.9 g/dL (3.4-5.0); Bilirubin Total 0.4 mg/dL (0.2-1.0); Potassium 3.9 mEq/L (3.5-5.1); Protein, Total 7.4 g/dL (6.4-8.2)
[2022-09-11] MEDS ORDERED: FENTANYL CITR 100 MCG/2 ML ONE (23:45)
[2022-09-12] MEDS ORDERED: LACTULOSE 20 GM/30 ML UCUP ONE (00:47)
[2022-09-12] MEDS ORDERED: FLEET ENEMA ADULT PR ONE (00:47)
--- NOTE | 2022-09-12 01:19 | EDPHYS ---
Physician Documentation [facility] Name: Suhas Christie Age: 52 yrs Sex: Male : 1970 Arrival Date: 09/11/2022 Time: 20:22 Bed 13 Private MD: ED Physician Vinnei Oquendo HPI: 09/12 02:49 This 52 yrs old Male presents to ER via Ambulatory with complaints of Abdominal Pain. rt 02:49 [facility] to the left lower rt quadrant, subsequently diagnosed with reticulitis and was discharged on Cipro and Flagyl. The patient states that the pain persisted and worsened today. Pain is localized to the left lower quadrant, is aching nature, nonradiating. Denies other acute complaints symptoms are moderate severity, no other aggravating elevating factors.. Historical: - Allergies: 09/11 20:52 No Known Allergies; vc1 - Home Meds: 20:52 None [Active]; vc1 - PMHx: 20:52 Prostate Infection; Diverticulitis; vc1 - PSHx: 20:52 Appendectomy; 2 hernia repairs; vc1 - Immunization history:: Client reports having NOT received the Covid vaccine. - Social history:: Smoking status: Patient denies any tobacco usage or history of. - Family history:: not pertinent. ROS: 09/12 02:49 Constitutional: Negative for fever, chills, and weight loss, Cardiovascular: Negative rt for chest pain, palpitations, and edema, Respiratory: Negative for shortness of breath, cough, wheezing, and pleuritic chest pain, MS/Extremity: Negative for injury and deformity, Skin: Negative for injury, rash, and discoloration, Neuro: Negative for headache, weakness, numbness, tingling, and seizure, Psych: Negative for depression, anxiety, suicide ideation, homicidal ideation, and hallucinations. Abdomen/GI: Positive for abdominal pain, Negative for diarrhea. Exam: 02:49 Constitutional: This is a well developed, well nourished patient who is awake, alert, rt and in no acute distress. Head/Face: Normocephalic, atraumatic. Chest/axilla: Normal chest wall appearance and motion. Nontender with no deformity. No lesions are appreciated. Cardiovascular: Regular rate and rhythm with a normal S1 and S2. No gallops, murmurs, or rubs. Normal PMI, no JVD. No pulse deficits. Respiratory: Lungs have equal breath sounds bilaterally, clear to auscultation and percussion. No rales, rhonchi or wheezes noted. No increased work of breathing, no retractions or nasal flaring. Skin: Warm, dry with normal turgor. Normal color with no rashes, no lesions, and no evidence of cellulitis. MS/ Extremity: Pulses equal, no cyanosis. Neurovascular intact. Full, normal range of motion. Neuro: Awake and alert, GCS 15, oriented to person, place, time, and situation. Cranial nerves II-XII grossly intact. Motor strength 5/5 in all extremities. Sensory grossly intact. Cerebellar exam normal. Normal gait. Psych: Awake, alert, with orientation to person, place and time. Behavior, mood, and affect are within normal limits. 02:49 Abdomen/GI: Tenderness to the left lower quadrant with mild guarding, no rebound, no distention. Vital Signs: 09/11 20:49 BP 125 / 88; Pulse 70; Resp 15; Temp 98.5; Pulse Ox 100% ; Weight 72.57 kg; Height 5 vc1 ft. 7 in. ; Pain 10/10; 22:30 BP 115 / 81; Pulse 56; Resp 15; Pulse Ox 100% ; vc1 23:30 BP 104 / 72; Pulse 79; Resp 15; Pulse Ox 95% on R/A; vc1 09/12 00:00 BP 113 / 81; Pulse 79; Resp 16; Pulse Ox 99% ; vc1 01:17 BP 111 / 80; Pulse 57; Resp 15; Pulse Ox 99% ; vc1 09/11 20:49 Body Mass Index 25.06 (72.57 kg, 170.18 cm) vc1 09/11 20:49 Pain Scale: Adult vc1 MDM: 09/11 20:49 Patient medically screened. rt 09/12 02:49 Differential diagnosis: Diverticulitis, diverticular abscess, constipation, colitis. rt Data reviewed: vital signs, nurses notes, radiologic studies. Independent interpretation of the following test(s) in the Emergency Department CT Scan: My interpretation is No bowel obstruction syndrome interpretation of the CT scan images. Counseling: I had a detailed discussion with the patient and/or guardian regarding: the historical points, exam findings, and any diagnostic results supporting the discharge/admit diagnosis, lab results, radiology results, the need for outpatient follow up, to return to the emergency department if symptoms worsen or persist or if there are any questions or concerns that arise at home. Response to treatment: the patient's symptoms have resolved after treatment. 09/11 20:54 Order name: CBC with Diff; Complete Time: 22:27 rt 09/11 20:54 Order name: CMP; Complete Time: 22:27 rt 09/11 20:54 Order name: Lipase; Complete Time: 22:27 rt 09/11 20:54 Order name: Urinalysis w/ reflexes; Complete Time: 22:27 rt 09/11 20:54 Order name: CT Abd/Pelvis - IV Contrast Only rt 09/11 20:54 Order name: IV Saline Lock; Complete Time: 22:23 rt 09/11 20:54 Order name: Labs collected and sent; Complete Time: 22:23 rt Administered Medications: 09/11 22:23 Drug: NS 0.9% IV 1000 ml Route: IV; Rate: 1 bolus; Site: left antecubital; vc1 23:00 Follow up: IV Status: Completed infusion; IV Intake: 1000ml vc1 22:23 Drug: morphine IVP or IV 4 mg Route: IVP; Infused Over: 4 mins; Site: left antecubital; vc1 23:30 Follow up: Response: No adverse reaction; No change in condition; Pain is unchanged, vc1 physician notified 22:23 Drug: NS 0.9% IV 1000 ml Route: IV; Rate: 1 bolus; Site: left antecubital; vc1 09/12 01:27 Follow up: Response: No adverse reaction vc1 09/11 22:30 Drug: Piperacillin-Tazobactam IVPB 3.375 grams Route: IVPB; Infused Over: 60 mins; vc1 Site: left antecubital; 23:00 Follow up: IV Status: Completed infusion; IV Intake: 100ml vc1 23:42 Drug: fentaNYL (PF) IVP 100 mcg Route: IVP; Site: left antecubital; ha1 09/12 01:17 Follow up: Response: No adverse reaction; Pain is decreased vc1 00:45 Drug: Lactulose PO 30 grams Volume: 45 ml; Route: PO; vc1 01:16 Follow up: Response: No adverse reaction; Marked relief of symptoms; Marked relief of vc1 symptoms; Pt had BM 01:16 Not Given (Patient Refused): Fleet Enema MN 133 ml MN once vc1 Disposition Summary: 09/12/22 01:18 Discharge Ordered Location: Home rt Problem: new rt Symptoms: are resolved rt Condition: Stable rt Diagnosis - Constipation rt Followup: rt - With: Les Arroyo MD - When: 2 - 3 days - Reason: Discharge Instructions: - Discharge Summary Sheet rt - Constipation, Adult rt Forms: - Medication Reconciliation Form rt - Thank You Letter rt - Antibiotic Education rt - Prescription Opioid Use rt - [email or web address] rt Signatures: Dispatcher [employer] Johana Munroe RN RN vc1 Dominique Wyatt RN RN ha1 Vinnie Oquendo MD MD rt
--- NOTE | 2022-09-12 01:19 | ER ---
Nurse's Notes [facility] Name: Suhas Christie Age: 52 yrs Sex: Male : 1970 Arrival Date: 09/11/2022 Time: 20:22 Bed 13 Private MD: Diagnosis: Constipation Presentation: 09/11 20:49 Chief complaint: Patient states: I was diagnosed on the 22 of August with vc1 Diverticulitis. I have a follow up with Dr. Whaley in [place]. He told me to come to the ER if it got worse. It feels like my intestines are going to explode. Coronavirus screen: Vaccine status: Client denies travel out of the [place] in the last 14 days. At this time, the client does not indicate any symptoms associated with coronavirus-19. Ebola Screen: Patient negative for fever greater than or equal to 101.5 degrees Fahrenheit, and additional compatible Ebola Virus Disease symptoms Patient denies exposure to infectious person. Patient denies travel to an Ebola-affected area in the 21 days before illness onset. No symptoms or risks identified at this time. Initial Sepsis Screen: Does the patient meet any 2 criteria? No. Patient's initial sepsis screen is negative. Does the patient have a suspected source of infection? No. Patient's initial sepsis screen is negative. Risk Assessment: Do you want to hurt yourself or someone else? Patient reports no desire to harm self or others. Onset of symptoms is unknown. 20:49 Method Of Arrival: Ambulatory vc1 20:49 Acuity: CHARLES 3 vc1 Triage Assessment: 20:53 General: Appears in no apparent distress. uncomfortable, ill, Behavior is cooperative, vc1 appropriate for age. Pain: Complains of pain in right upper quadrant, left upper quadrant and left lower quadrant Pain does not radiate. Pain currently is 10 out of 10 on a pain scale. EENT: No deficits noted. No signs and/or symptoms were reported regarding the EENT system. Neuro: Level of Consciousness is awake, alert, obeys commands, Oriented to person, place, time, situation, Appropriate for age. Cardiovascular: No deficits noted. Respiratory: Airway is patent Respiratory effort is even, unlabored, Respiratory pattern is regular, symmetrical. GI: Abdomen is flat, non-distended, Reports lower abdominal pain, upper abdominal pain. : No deficits noted. No signs and/or symptoms were reported regarding the genitourinary system. Derm: No deficits noted. No signs and/or symptoms reported regarding the dermatologic system. Musculoskeletal: No deficits noted. No signs and/or symptoms reported regarding the musculoskeletal system. Historical: - Allergies: 20:52 No Known Allergies; vc1 - Home Meds: 20:52 None [Active]; vc1 - PMHx: 20:52 Prostate Infection; Diverticulitis; vc1 - PSHx: 20:52 Appendectomy; 2 hernia repairs; vc1 - Immunization history:: Client reports having NOT received the Covid vaccine. - Social history:: Smoking status: Patient denies any tobacco usage or history of. - Family history:: not pertinent. Screenin:00 [facility] ED Fall Risk Assessment (Adult) History of falling in the last 3 months, vc1 including since admission No falls in past 3 months (0 pts) Confusion or Disorientation No (0 pts) Intoxicated or Sedated No (0 pts) Impaired Gait No (0 pts) Mobility Assist Device Used No (0 pt) Altered Elimination No (0 pt) Score/Fall Risk Level 0 - 2 = Low Risk Oriented to surroundings, Maintained a safe environment, Educated pt \T\ family on fall prevention, incl call for assistance when getting out of bed. 09/12 00:23 Abuse screen: Denies threats or abuse. Nutritional screening: No deficits noted. vc1 Tuberculosis screening: No symptoms or risk factors identified. Assessment: 09/11 21:50 Reassessment: No changes from previously documented assessment. Patient and/or family vc1 updated on plan of care and expected duration. Pain level reassessed. Patient is alert, oriented x 3, equal unlabored respirations, skin warm/dry/pink. 22:30 Reassessment: No changes from previously documented assessment. Patient and/or family vc1 updated on plan of care and expected duration. Pain level reassessed. Patient is alert, oriented x 3, equal unlabored respirations, skin warm/dry/pink. 09/12 00:00 Reassessment: Patient and/or family updated on plan of care and expected duration. Pain vc1 level reassessed. Patient is alert, oriented x 3, equal unlabored respirations, skin warm/dry/pink. Patient states symptoms have improved. 01:00 Reassessment: Patient and/or family updated on plan of care and expected duration. Pain vc1 level reassessed. Patient is alert, oriented x 3, equal unlabored respirations, skin warm/dry/pink. Patient states feeling better. Patient states symptoms have improved. Vital Signs: 09/11 20:49 BP 125 / 88; Pulse 70; Resp 15; Temp 98.5; Pulse Ox 100% ; Weight 72.57 kg; Height 5 vc1 ft. 7 in. ; Pain 10/10; 22:30 BP 115 / 81; Pulse 56; Resp 15; Pulse Ox 100% ; vc1 23:30 BP 104 / 72; Pulse 79; Resp 15; Pulse Ox 95% on R/A; vc1 09/12 00:00 BP 113 / 81; Pulse 79; Resp 16; Pulse Ox 99% ; vc1 01:17 BP 111 / 80; Pulse 57; Resp 15; Pulse Ox 99% ; vc1 09/11 20:49 Body Mass Index 25.06 (72.57 kg, 170.18 cm) vc1 09/11 20:49 Pain Scale: Adult vc1 ED Course: 09/11 20:25 Patient arrived in ED. ja2 20:34 Vinnie Oquendo MD is Attending Physician. rt 20:52 Triage completed. vc1 20:53 Arm band placed on right wrist. vc1 21:11 Radiology exam delayed due to lab results not completed at this time. (BUN/Creatinine) ls3 IV insertion attempt and/or patient not having appropriate IV at this time. 21:55 Inserted saline lock: 20 gauge in left antecubital area, using aseptic technique. Blood vc1 collected. 21:58 Johana Santillan, KIANA is Primary Nurse. vc1 22:00 Patient has correct armband on for positive identification. Bed in low position. Call vc1 light in reach. Pulse ox on. NIBP on. 23:16 CT Abd/Pelvis - IV Contrast Only In Process Unspecified. EDMS 09/12 01:18 Les Arroyo MD is Referral Physician. rt 01:25 No provider procedures requiring assistance completed. IV discontinued, intact, vc1 bleeding controlled, No redness/swelling at site. Pressure dressing applied. Administered Medications: 09/11 22:23 Drug: NS 0.9% IV 1000 ml Route: IV; Rate: 1 bolus; Site: left antecubital; vc1 23:00 Follow up: IV Status: Completed infusion; IV Intake: 1000ml vc1 22:23 Drug: morphine IVP or IV 4 mg Route: IVP; Infused Over: 4 mins; Site: left antecubital; vc1 23:30 Follow up: Response: No adverse reaction; No change in condition; Pain is unchanged, vc1 physician notified 22:23 Drug: NS 0.9% IV 1000 ml Route: IV; Rate: 1 bolus; Site: left antecubital; vc1 09/12 01:27 Follow up: Response: No adverse reaction vc1 09/11 22:30 Drug: Piperacillin-Tazobactam IVPB 3.375 grams Route: IVPB; Infused Over: 60 mins; vc1 Site: left antecubital; 23:00 Follow up: IV Status: Completed infusion; IV Intake: 100ml vc1 23:42 Drug: fentaNYL (PF) IVP 100 mcg Route: IVP; Site: left antecubital; ha1 09/12 01:17 Follow up: Response: No adverse reaction; Pain is decreased vc1 00:45 Drug: Lactulose PO 30 grams Volume: 45 ml; Route: PO; vc1 01:16 Follow up: Response: No adverse reaction; Marked relief of symptoms; Marked relief of vc1 symptoms; Pt had BM 01:16 Not Given (Patient Refused): Fleet Enema OK 133 ml OK once vc1 Medication: 00:23 VIS not applicable for this client. vc1 Intake: 09/11 23:00 IV: 100ml; Total: 100ml. vc1 23:00 IV: 1000ml; Total: 1100ml. vc1 Outcome: 09/12 01:18 Discharge ordered by . rt 01:26 Discharged to home ambulatory. vc1 01:26 Condition: good 01:26 Discharge instructions given to patient, Instructed on discharge instructions, follow up and referral plans. Demonstrated understanding of instructions, follow-up care. 01:26 Patient left the ED. vc1 Signatures: Dispatcher [employer] EDMS Param Miner ls3 Christine Garay2 Johana Santillan RN RN vc1 Dominique Wyatt RN RN ha1 Vinnie Oquendo MD MD rt Corrections: (The following items were deleted from the chart) 09/11 22:53 22:52 Reassessment: No changes from previously documented assessment. Patient and/or vc1 family updated on plan of care and expected duration. Pain level reassessed. Patient is alert, oriented x 3, equal unlabored respirations, skin warm/dry/pink. vc1
[2022-09-12 04:08] VITALS: BP 104/72; O2SAT 95
--- NOTE | 2022-09-12 23:34 | RAD REPORT ---
EXAM DESCRIPTION: CT - Abdomen Pelvis W Contrast - 09/12/2022 6:29 am CLINICAL HISTORY: 52 years Male abd pain, hx of diverticulitis COMPARISON: September 27, 2018 TECHNIQUE: Images were obtained in axial, sagittal, and coronal planes. Intravenous contrast was adm inistered. This exam was performed according to our departmental dose-optimization program which includes use of Automated Exposure Control, adjustment of the mA and/or kV according to patient size and/or use of iterative reconstruction technique. FINDINGS: No abnormality involving the liver, pancreas, gallbladder, or adrenal glands bilaterally. Spleen is enlarged measuring 13.2 cm in anterior posterior dimension. No obstructing renal or ureteral calculi bilaterally. No hydronephrosis bilaterally. Unremarkable alicia dder. Enlarged prostate gland. Prior appendectomy. No bowel obstruction, perforation, or inflammation. Marked constipation. No signi ficant diverticular change or evidence for diverticulitis. No abnormality of abdominal aorta or portal vein. No abnormal fluid collections seen. Indistinct fatt y mesentery with marginated appearance at level of root of mesentery extending to the right. Associat ed normal sized lymph nodes in this region. The appearance is unchanged when correlated with the prio r study. Dependent atelectatic change lower lungs bilaterally. No acute osseous abnormality. IMPRESSION: Interval appendectomy. No acute intra-abdominal abnormality. Marked constipation. Electronically signed by: Claudette Gupta MD 09/11/2022 11:55 PM CDT Due to temporary technical issues with the PACS/Fluency reporting system, reports are being signed by the in house radiologists without review as a courtesy to insure prompt reporting. The interpreting radiologist is fully responsible for the content of the report.
== END 2022-09-12 01:26 | disposition home or self-care (01) ==
LOC: ER 20:22
DX: K59.00 Constipation, unspecified (principal)
CPT/HCPCS: 96365; 85025; 81001; 36415; 83690; 80053; 74177; 96375; 99285; Q9967; J2543; J3010; J7030

== ENCOUNTER 2024-02-01 12:31 | Emergency (ER) | payer OTHER ==
[2024-02-01] MEDS ORDERED: NA CHLORIDE 0.9% 1,000 ML ONE (13:22)
[2024-02-01] MEDS ORDERED: HYDROMORPHONE HCL 1 MG/ML INJ ONE ×2 (13:22→14:51)
[2024-02-01] MEDS ORDERED: ONDANSETRON 4 MG/2 ML VIAL ONE (13:22)
[2024-02-01] MEDS ORDERED: FAMOTIDINE 20 MG/2 ML VIAL IV ONE (13:22)
[2024-02-01 13:33] LABS: Absolute Lymphocytes (CBC) 0.7 K/uL (0.7-4.9); Absolute Monocytes 0.3 K/uL (0.1-1.3); Absolute Neutrophil 2.3 K/uL (1.8-8.0); Basophils % 0.4 % (0-1.3); Eosinophils % 1.1 % (0-4.4); Hemoglobin 13.9 g/dL (13.6-17.9); Lymphocytes % 20.6 % (15.3-44.8); MCH 30.1 pg (27.0-35.0); MCHC 33.1 g/dL (32.0-36.0); MPV 9.8 fL (7.6-11.3); Monocytes % 8.4 % (3.3-12.3); Neutrophils % 69.5 % (41.7-73.7); Nucleated Red Blood Cells % 0.1 % (0-0); Platelets 131 thou/uL (152-406); RBC Red Blood Cell Count 4.62 M/uL (4.33-5.43); Red Cell Distribution Width 13.7 % (12.1-15.2)
[2024-02-01 13:43] LABS: Albumin 3.8 g/dL (3.4-5.0); Albumin/Globulin Ratio 1.1 (1.1-1.8); Anion Gap 10.9 mEq/L (5.0-15.0); Bilirubin Total 0.7 mg/dL (0.2-1.0); Globulin 3.4 g/dL (2.3-3.5); Potassium 3.9 mEq/L (3.5-5.1); Protein, Total 7.2 g/dL (6.4-8.2)
--- NOTE | 2024-02-01 14:15 | RAD REPORT ---
EXAMINATION: CT ABDOMEN AND PELVIS WITH CONTRAST CLINICAL INDICATION: Abdominal pain TECHNIQUE: CT abdomen and pelvis was performed, after the administration of 100 cc Isovue-300.. Sagit candy and coronal reconstructions were obtained. One or more of the following dose reduction techniques were used: Automated exposure control, adjustment of the mA and kV according to patient si ze, and iterative reconstruction. Unless otherwise specified, incidental findings do not require dedicated imaging follow-up. [id number]. Oral contrast was not given which limits evaluation of bowel and appendix. COMPARISON: .2022 FINDINGS: Liver, pancreas, adrenals and kidneys appear unremarkable. Borderline splenomegaly. Cholecystectomy. No fluid within the gallbladder fossa. No evidence of diverticulitis. Moderate amount of stool within the colon. Prostate gland mildly enlarged. Small bilateral inguinal hernias. Mild posterior subluxation L5 on S1 . Spondylolysis L5.. A transitional lumbar vertebra : IMPRESSION: Moderate amount stool within the colon
[2024-02-01 17:31] LABS: Specific Gravity > 1.030 (1.005-1.030); Urine Bilirubin NEGATIVE (Negative); Urine Blood Negative (Negative); Urine Clarity Clear (Clear); Urine Color Light-Yellow (Yellow); Urine Glucose NEGATIVE (Negative); Urine Ketones NEGATIVE (Negative); Urine Microscopic Reflex YN NO UMIC; Urine Nitrite NEGATIVE (Negative); Urine Protein NEGATIVE (Negative); Urine Urobilinogen Normal (Normal); Urine pH 6.5 (5.0-7.0)
--- NOTE | 2024-02-01 18:42 | RAD REPORT ---
EXAMINATION: MR CHOLANGIOGRAM CLINICAL INDICATION: Abdominal pain TECHNIQUE: Magnetic resonance cholangiopancreatogram was performed. 3D MIP reconstruction done. COMPARISON: February 01, 2024 FINDINGS: A cholecystectomy has been performed. No fluid within the gallbladder fossa or surrounding the liver. Intra and extrahepatic biliary tree normal caliber without visualization of a filling defect. Pancreatic duct unremarkable. The cystic duct remnant has a beaded appearance. IMPRESSION: Cholecystectomy Beaded appearance to the cystic duct remnant. This can be a normal finding. Stones within the cystic duct can also result in this appearance
--- NOTE | 2024-02-01 18:49 | ER ---
Nurse's Notes [facility] Name: Suhas Christie Age: 53 yrs Sex: Male : 1970 Arrival Date: 02/01/2024 Time: 12:31 Bed 15 Private MD: Diagnosis: Epigastric abdominal tenderness Presentation: 01/31 12:38 Chief complaint: Patient states: Abdominal pain down center of chest onset 1hr [employer]. Pt iw states that the pain radiates to back. Pt had [facility] [place] 12/04 at [facility]. Coronavirus screen: Client denies travel out of the [place] in the last 14 days. Ebola Screen: Patient denies travel to an Ebola-affected area in the 21 days before illness onset. No symptoms or risks identified at this time. Initial Sepsis Screen: Does the patient meet any 2 criteria? No. Patient's initial sepsis screen is negative. Does the patient have a suspected source of infection? No. Patient's initial sepsis screen is negative. Risk Assessment: Do you want to hurt yourself or someone else? Patient reports no desire to harm self or others. Onset of symptoms was February 01, 2024. 12:38 Method Of Arrival: Wheelchair iw 12:38 Acuity: CHARLES 3 iw Triage Assessment: 12:40 General: Appears uncomfortable, Behavior is cooperative. Pain: Complains of pain in cm10 abdomen Pain radiates to back Pain currently is 12 out of 10 on a pain scale. Pain began 1 hour ago. Neuro: No deficits noted. Level of Consciousness is awake, alert, Oriented to person, place, time, situation, Appropriate for age. Respiratory: No deficits noted. Airway is patent Respiratory effort is even, unlabored, Respiratory pattern is regular, symmetrical. Historical: - Allergies: 12:40 No Known Allergies; cm10 - PMHx: 12:40 Diverticulitis; Prostate Infection; cm10 - PSHx: 12:40 2 hernia repairs; Appendectomy; Cholecystectomy; cm10 - Immunization history:: Adult Immunizations up to date. - Infectious Disease History:: Denies. - Social history:: Smoking status: Patient denies any tobacco usage or history of. Screenin:56 [facility] ED Fall Risk Assessment (Adult) History of falling in the last 3 months, ph including since admission No falls in past 3 months (0 pts) Confusion or Disorientation No (0 pts) Intoxicated or Sedated Yes (3 pts) Impaired Gait No (0 pts) Mobility Assist Device Used No (0 pt) Altered Elimination No (0 pt) Score/Fall Risk Level 0 - 2 = Low Risk Oriented to surroundings, Maintained a safe environment, Hourly rounding (assess needs \T\ fall precautionary measures) done, Used ambulatory aids as needed (educated on \T\ assisted with). Abuse screen: Denies threats or abuse. Denies injuries from another. Nutritional screening: No deficits noted. Tuberculosis screening: No symptoms or risk factors identified. Assessment: 13:55 General: Appears in no apparent distress. uncomfortable, Behavior is calm, cooperative, ph appropriate for age. Pain: Complains of pain in abdomen Pain radiates to back. Neuro: Level of Consciousness is awake, alert, obeys commands, Oriented to person, place, time, situation. Cardiovascular: Capillary refill < 3 seconds Patient's skin is warm and dry. Respiratory: Airway is patent Respiratory effort is even, unlabored, Respiratory pattern is regular, symmetrical. GI: Abdomen is non-distended, Reports lower abdominal pain, upper abdominal pain. : No signs and/or symptoms were reported regarding the genitourinary system. Derm: Skin is pink, warm \T\ dry. 19:05 General: Appears in no apparent distress. comfortable. Pain: Complains of pain in rg5 abdomen Pain currently is 7 out of 10 on a pain scale. Quality of pain is described as aching. 19:05 Neuro: Level of Consciousness is awake, alert, Oriented to person, place, time. rg5 Cardiovascular: Patient's skin is warm and dry. Respiratory: Airway is patent Respiratory effort is even, unlabored, Respiratory pattern is. GI: Abdomen is round Bowel sounds present X 4 quads. Abd is soft and non tender. : No signs and/or symptoms were reported regarding the genitourinary system. Derm: Skin is intact, Skin is dry, Skin is normal. Musculoskeletal: Circulation, motion, and sensation intact. Range of motion: intact in all extremities. Vital Signs: 12:38 BP 138 / 93; Pulse 69; Resp 16; Temp 97.5(O); Pulse Ox 100% on R/A; Weight 70.31 kg; iw Height 5 ft. 7 in. ; Pain 10/10; 13:57 BP 100 / 66; Pulse 51; Resp 18; Pulse Ox 100% on R/A; ph 15:09 BP 119 / 81; Pulse 54; Resp 18; Pulse Ox 98% on R/A; ph 16:30 BP 125 / 78; Pulse 55; Resp 18; Pulse Ox 97% on R/A; ph 19:10 BP 119 / 78; Pulse 66; Resp 17; Pulse Ox 98% on R/A; Pain 7/10; rg5 20:00 BP 116 / 83; Pulse 77; Resp 17; Pulse Ox 98% on R/A; Pain 7/10; rg5 12:38 Body Mass Index 24.28 (70.31 kg, 170.18 cm) iw 12:38 Pain Scale: Adult iw 19:10 Pain Scale: Adult rg5 20:00 Pain Scale: Adult rg5 ED Course: 12:32 Patient arrived in ED. im 12:39 Aleksandr Durbin MD is Attending Physician. april 12:40 Triage completed. iw 12:41 Arm band placed on left wrist. Patient placed in waiting room. cm10 13:09 Lolly June, RN is Primary Nurse. ph 13:15 Initial lab(s) drawn, by or, sent to lab. Inserted saline lock: 22 gauge in left ph antecubital area, using aseptic technique. Blood collected. Flushed with 10 mL NS. 13:57 Patient has correct armband on for positive identification. Bed in low position. Call ph light in reach. Side rails up X 1. Pulse ox on. NIBP on. 14:02 CT Abd/Pelvis - IV Contrast Only In Process Unspecified. EDMS 15:09 No provider procedures requiring assistance completed. ph 16:15 Surgeon paged at 16:16 . bd 16:22 Surgeon returned call at 16:22. bd 18:29 Cholangiogram In Process Unspecified. EDMS 20:25 Provided Education on: post er care. rg5 20:25 IV discontinued. rg5 Administered Medications: 13:20 Drug: Famotidine IVP 20 mg IVP once; dilute with 10 mL 0.9% NaCl; give over 2 minutes ph Route: IVP; Site: left antecubital; 15:07 Follow up: Response: No adverse reaction ph 13:20 Drug: Ondansetron IVP 4 mg IVP once; over 2 minutes Route: IVP; Site: left antecubital; ph 15:07 Follow up: Response: No adverse reaction ph 13:20 Drug: NS 0.9% IV 1000 ml IV at 1 bolus Per protocol; to be given as a bolus over 60 ph minutes Route: IV; Rate: 1 bolus; Site: left antecubital; 14:20 Follow up: Response: No adverse reaction; IV Intake: 1000ml ph 19:05 Follow up: IV Status: Completed infusion; IV Intake: 1000ml rg5 13:20 Drug: HYDROmorphone IVP 1 mg IVP once Route: IVP; Site: left antecubital; ph 13:40 Follow up: Response: No adverse reaction; Pain is decreased; RASS: Drowsy (-1) ph 13:59 Not Given (Other Intervention Used): morphineor iv 4 mg IVP once over 4 mins ph 15:35 Drug: HYDROmorphone IVP 1 mg IVP once Route: IVP; Site: left antecubital; ph 16:00 Follow up: Response: No adverse reaction; Pain is decreased; RASS: Drowsy (-1) ph 19:03 Not Given (Other Intervention Used): ondansetron 4 mg IVP once; over 2 minutes ph 19:14 Drug: GI Cocktail without - (Maalox PO 30 ml, Lidocaine Mucous Membrane 2 % 15 rg5 ml) PO once Route: PO; 20:12 Follow up: Response: No adverse reaction rg5 20:05 Drug: HYDROmorphone IVP 0.5 mg IVP once Route: IVP; Site: left antecubital; rg5 20:18 Follow up: Response: No adverse reaction; Pain is decreased rg5 Medication: 13:56 VIS not applicable for this client. ph Intake: 14:20 IV: 1000ml; Total: 1000ml. ph 19:05 IV: 1000ml; Total: 2000ml. rg5 Outcome: 18:48 Discharge ordered by . april 20:25 Discharged to home ambulatory, rg5 20:25 Condition: stable 20:25 Discharge instructions given to patient, Instructed on discharge instructions, follow up and referral plans. Demonstrated understanding of instructions, follow-up care, medications, Prescriptions given X 4, 20:26 Patient left the ED. rg5 Signatures: Dispatcher [employer] EDKaron Lama, Aleksandr, MD MD april Rafy, Judy, RN RN Lolly June RN RN Carina Michael Clarissa, RN RN cm10 Demond Talley RN RN rg5 Corrections: (The following items were deleted from the chart) 14:23 14:22 HYDROmorphone IVP 1 mg IVP in left antecubital ph ph
--- NOTE | 2024-02-01 18:49 | EDPHYS ---
Physician Documentation [facility] Name: Suhas Christie Age: 53 yrs Sex: Male : 1970 Arrival Date: 02/01/2024 Time: 12:31 Bed 15 Private MD: GATO Physician Aleksandr uDrbin HPI: 01/31 14:07 This 53 yrs old Male presents to ER via Wheelchair with complaints of Abdominal april Pain, gallbladder surgery 3 weeks. Historical: - Allergies: 12:40 No Known Allergies; cm10 - PMHx: 12:40 Diverticulitis; Prostate Infection; cm10 - PSHx: 12:40 2 hernia repairs; Appendectomy; Cholecystectomy; cm10 - Immunization history:: Adult Immunizations up to date. - Infectious Disease History:: Denies. - Social history:: Smoking status: Patient denies any tobacco usage or history of. ROS: 14:10 Constitutional: Negative for fever, chills, and weight loss, Eyes: Negative for injury, april pain, redness, and discharge, ENT: Negative for injury, pain, and discharge, Neck: Negative for injury, pain, and swelling, Cardiovascular: Negative for chest pain, palpitations, and edema, Respiratory: Negative for shortness of breath, cough, wheezing, and pleuritic chest pain, Back: Negative for injury and pain, : Negative for injury, bleeding, discharge, and swelling, MS/Extremity: Negative for injury and deformity, Skin: Negative for injury, rash, and discoloration, Neuro: Negative for headache, weakness, numbness, tingling, and seizure, Psych: Negative for depression, anxiety, suicide ideation, homicidal ideation, and hallucinations, Allergy/Immunology: Negative for hives, rash, and allergies, Endocrine: Negative for neck swelling, polydipsia, polyuria, polyphagia, and marked weight changes, Hematologic/Lymphatic: Negative for swollen nodes, abnormal bleeding, and unusual bruising, 14:10 Abdomen/GI: Positive for abdominal pain, of the epigastric area, posterior aspect of left lateral abdomen, posterior aspect of right lateral abdomen, right upper quadrant and left upper quadrant, Exam: 14:10 Constitutional: This is a well developed, well nourished patient who is awake, alert, april and in no acute distress. Head/Face: Normocephalic, atraumatic. Eyes: Pupils equal round and reactive to light, extra-ocular motions intact. Lids and lashes normal. Conjunctiva and sclera are non-icteric and not injected. Cornea within normal limits. Periorbital areas with no swelling, redness, or edema. ENT: Nares patent. No nasal discharge, no septal abnormalities noted. Tympanic membranes are normal and external auditory canals are clear. Oropharynx with no redness, swelling, or masses, exudates, or evidence of obstruction, uvula midline. Mucous membranes moist. Neck: Trachea midline, no thyromegaly or masses palpated, and no cervical lymphadenopathy. Supple, full range of motion without nuchal rigidity, or vertebral point tenderness. No Meningismus. Chest/axilla: Normal chest wall appearance and motion. Nontender with no deformity. No lesions are appreciated. Cardiovascular: Regular rate and rhythm with a normal S1 and S2. No gallops, murmurs, or rubs. Normal PMI, no JVD. No pulse deficits. Respiratory: Lungs have equal breath sounds bilaterally, clear to auscultation and percussion. No rales, rhonchi or wheezes noted. No increased work of breathing, no retractions or nasal flaring. Back: No spinal tenderness. No costovertebral tenderness. Full range of motion. Male : Normal genitalia with no discharge or lesions. Skin: Warm, dry with normal turgor. Normal color with no rashes, no lesions, and no evidence of cellulitis. MS/ Extremity: Pulses equal, no cyanosis. Neurovascular intact. Full, normal range of motion. Neuro: Awake and alert, GCS 15, oriented to person, place, time, and situation. Cranial nerves II-XII grossly intact. Motor strength 5/5 in all extremities. Sensory grossly intact. Cerebellar exam normal. Normal gait. Psych: Awake, alert, with orientation to person, place and time. Behavior, mood, and affect are within normal limits. 14:10 Abdomen/GI: Inspection: abdomen appears normal, Bowel sounds: normal, Palpation: moderate abdominal tenderness, in the epigastric area, right upper quadrant and left upper quadrant, Liver: no appreciated palpable abnormalities, Hernia: not appreciated, 14:50 ECG was reviewed by the Attending Physician. april Vital Signs: 12:38 BP 138 / 93; Pulse 69; Resp 16; Temp 97.5(O); Pulse Ox 100% on R/A; Weight 70.31 kg; iw Height 5 ft. 7 in. ; Pain 10/10; 13:57 BP 100 / 66; Pulse 51; Resp 18; Pulse Ox 100% on R/A; ph 15:09 BP 119 / 81; Pulse 54; Resp 18; Pulse Ox 98% on R/A; ph 16:30 BP 125 / 78; Pulse 55; Resp 18; Pulse Ox 97% on R/A; ph 19:10 BP 119 / 78; Pulse 66; Resp 17; Pulse Ox 98% on R/A; Pain 7/10; rg5 20:00 BP 116 / 83; Pulse 77; Resp 17; Pulse Ox 98% on R/A; Pain 7/10; rg5 12:38 Body Mass Index 24.28 (70.31 kg, 170.18 cm) iw 12:38 Pain Scale: Adult iw 19:10 Pain Scale: Adult rg5 20:00 Pain Scale: Adult rg5 MDM: 12:39 Medical Screening Exam initiated april 14:13 Differential diagnosis: gastritis, gastroesophageal reflux disease, non-specific abd april pain, pancreatitis, Peptic Ulcer Disease, Ureterolithiasis, urinary tract infection. Data reviewed: vital signs, nurses notes, lab test result(s), EKG, radiologic studies, CT scan, MRI. Consideration of Admission/Observation Escalation of care including admission/observation considered. I considered the following discharge prescriptions or medication management in the emergency department Medications were administered in the Emergency Department. See MAR. Independent interpretation of the following test(s) in the Emergency Department EKG: See my EKG interpretation above. Test considered but Not performed: Ultrasound no abd usg. Historians other than the Patient: Spouse/Significant Other: well informed. 18:53 ED course: DR MORELAND, NO CHANGES IN PLAN , CALL OFFICE IN THE MORNING FOR GI REFERRAL. [facility] 01/31 12:39 Order name: CBC with Diff; Complete Time: 14:06 [facility] 01/31 12:39 Order name: CMP; Complete Time: 14:06 [facility] 01/31 12:39 Order name: Lipase; Complete Time: 14:06 [facility] 01/31 12:39 Order name: Urinalysis w/ reflexes; Complete Time: 18:43 [facility] 01/31 14:50 Order name: Troponin High Sensitivity; Complete Time: 16:20 [facility] 01/31 12:39 Order name: CT Abd/Pelvis - IV Contrast Only; Complete Time: 14:17 [facility] 01/31 14:11 Order name: Cholangiogram; Complete Time: 18:43 [facility] 01/31 14:13 Order name: EKG; Complete Time: 14:13 [facility] 01/31 12:39 Order name: IV Saline Lock; Complete Time: 13:58 [facility] 01/31 12:39 Order name: Labs collected and sent; Complete Time: 13:58 [facility] 01/31 14:13 Order name: EKG - Nurse/Tech; Complete Time: 15:06 [facility] EC:50 Rate is 77 beats/min. Rhythm is regular. QRS [place] is Normal. NH interval is normal. QRS april interval is normal. QT interval is normal. No Q waves. T waves are Normal. No ST changes noted. Clinical impression: NSR w/ Non-specific ST/T Changes and No evidence of ischemia. Interpreted by me. Reviewed by me. Administered Medications: 13:20 Drug: Famotidine IVP 20 mg IVP once; dilute with 10 mL 0.9% NaCl; give over 2 minutes ph Route: IVP; Site: left antecubital; 15:07 Follow up: Response: No adverse reaction ph 13:20 Drug: Ondansetron IVP 4 mg IVP once; over 2 minutes Route: IVP; Site: left antecubital; ph 15:07 Follow up: Response: No adverse reaction ph 13:20 Drug: NS 0.9% IV 1000 ml IV at 1 bolus Per protocol; to be given as a bolus over 60 ph minutes Route: IV; Rate: 1 bolus; Site: left antecubital; 14:20 Follow up: Response: No adverse reaction; IV Intake: 1000ml ph 19:05 Follow up: IV Status: Completed infusion; IV Intake: 1000ml rg5 13:20 Drug: HYDROmorphone IVP 1 mg IVP once Route: IVP; Site: left antecubital; ph 13:40 Follow up: Response: No adverse reaction; Pain is decreased; RASS: Drowsy (-1) ph 13:59 Not Given (Other Intervention Used): morphineor iv 4 mg IVP once over 4 mins ph 15:35 Drug: HYDROmorphone IVP 1 mg IVP once Route: IVP; Site: left antecubital; ph 16:00 Follow up: Response: No adverse reaction; Pain is decreased; RASS: Drowsy (-1) ph 19:03 Not Given (Other Intervention Used): ondansetron 4 mg IVP once; over 2 minutes ph 19:14 Drug: GI Cocktail without - (Maalox PO 30 ml, Lidocaine Mucous Membrane 2 % 15 rg5 ml) PO once Route: PO; 20:12 Follow up: Response: No adverse reaction rg5 20:05 Drug: HYDROmorphone IVP 0.5 mg IVP once Route: IVP; Site: left antecubital; rg5 20:18 Follow up: Response: No adverse reaction; Pain is decreased rg5 Disposition Summary: 02/01/24 18:48 Discharge Ordered Notes: Location: Home [facility] Condition: Stable [facility] Diagnosis - Epigastric abdominal tenderness [facility] Followup: april - With: Private Physician - When: 2 - 3 days - Reason: Recheck today's complaints, Continuance of care, Re-evaluation by your physician Discharge Instructions: - Discharge Summary Sheet [facility] - Abdominal Pain, Adult [facility] - Abdominal Pain, Adult, [id number] [facility] Forms: - Medication Reconciliation Form [facility] - Antibiotic Education [facility] - Prescription Opioid Use [facility] - Patient Portal Instructions [facility] - Leadership Thank You Letter [facility] Prescriptions: - ondansetron 4 mg Oral Tablet,disintegrating - take 1 tablet ORAL route every 6-8 hours for 5 days; 20 tablet; Refills: 0, [facility] Product Selection Permitted - Carafate 1 gram Oral tablet - take 1 tablet ORAL route 4 times per day take on an empty stomach, beginning on [facility] waking and last dose at bedtime; 28 tablet; Refills: 0, Product Selection Permitted - Protonix 40 mg Oral Tablet - take 1 tablet ORAL route once daily; 30 tablet; Refills: 0, Product Selection [facility] Permitted - dicyclomine 10 mg/5 mL Oral solution - take 10 milliliters ORAL route 4 times per day; 200 milliliter; Refills: 0, [facility] Product Selection Permitted Signatures: Dispatcher [employer] EDMS Aleksandr Durbin MD MD cha Hall, Patricia, RN RN Consuelo Chan, RN RN cm10 Demond Talley, RN RN rg5 Corrections: (The following items were deleted from the chart) 14:51 14:51 Troponin High Sensitivity+[id number].[id number] ordered. EDMS EDMS
[2024-02-01] MEDS ORDERED: MAGNES/ALUMIN/SIMET 30ML UCUP ONE (19:08)
[2024-02-01] MEDS ORDERED: LIDOCAINE VISCOUS 2% 10ML ORAL SOLN ONE (19:08)
[2024-02-01] MEDS ORDERED: HYDROMORPHONE HCL 0.5 MG/0.5 ML INJ ONE (20:07)
[2024-02-02 01:46] VITALS: TEMP 97.5
[2024-02-02 02:00] VITALS: O2SAT 98
[2024-02-02 02:01] VITALS: BP 116/83
--- NOTE | 2024-02-02 11:34 | EKG ---
Test Date: 2024-02-01 Test Time: 14:46:46 Board Certified Music Therapist: PH MEASUREMENT RESULTS: Intervals: Rate: 77 RI: 152 QRSD: 60 QT: 392 QTc: 443 [place]: P: 92 RI: 152 QRS: 49 T: 46 INTERPRETIVE STATEMENTS: Normal sinus rhythm Nonspecific ST and T wave abnormality Abnormal ECG Compared to ECG 09/27/2018 20:06:46 ST (T wave) deviation now present Sinus bradycardia no longer present Electronically Signed On 02-02-24 11:31:25 CORD MAKER by Riley Paniagua
== END 2024-02-01 20:26 | disposition home or self-care (01) ==
LOC: ER 12:31
DX: R10.816 Epigastric abdominal tenderness (principal); Z90.49 Acquired absence of other specified parts of digestive tract
CPT/HCPCS: 96361; 93005; 85025; 36415; 81003; 84484; 83690; 80053; 74177; 74181; 96375; 96374; 99284; Q9967; J1171 ×3; J2405; J7030